=== PATIENT | male | born 1995 | race Caucasian/White ===

== ENCOUNTER 2019-11-16 21:14 | Emergency (ER) | payer OTHER ==
[2019-11-16] MEDS ORDERED: Ketorolac Tromethamine 60 MG/2 ML VIAL ONE (22:08)
--- NOTE | 2019-11-16 22:18 | RAD ---
Radiograph left ankle 3 views: DATE: 11/16/2019 Time: 9:46 PM HISTORY: 24-year-old male status post acute traumatic left ankle pain. FINDINGS: There is an avulsion fracture at the distal tip of the medial malleolus with mild inferior displaceme nt. There is a similar size small osseous fragment slightly peripherally displaced from the medial cortex of the upper portion of the medial malleolus. Ankle mortise is congruent. No other potential fracture is identified. There is bilateral lateral and anterior soft tissue edema. IMPRESSION: 1. Evidence for avulsion fracture at distal tip of medial malleolus. 2. Questionable chip fracture (versus chronic soft tissue calcification) of medial cortical surface o f upper medial malleolus.
== END 2019-11-16 23:38 ==
LOC: ERS 21:14
DX: S82.52XA Displaced fracture of medial malleolus of left tibia, initial encounter for closed fracture (principal); M19.90 Unspecified osteoarthritis, unspecified site; Z87.891 Personal history of nicotine dependence; Z79.899 Other long term (current) drug therapy; W18.30XA Fall on same level, unspecified, initial encounter
CPT/HCPCS: 27760; 96372; J1885